=== PATIENT | male | born 1970 | race Hispanic/Latino ===

== ENCOUNTER 2024-06-05 05:26 | Emergency (ER) | payer OTHER ==
[~2024-06-05] VITALS: Ht 172.7 cm; Wt 108.4 kg
[2024-06-05 06:32] LABS: BASOPHILS # (AUTO) 0.05 K/uL (0.00-0.20); BASOPHILS % (AUTO) 0.8 % (0.0-5.0); EOSINOPHILS # (AUTO) 0.08 K/uL (0.00-0.70); EOSINOPHILS % (AUTO) 1.2 % (0.0-8.0); HEMATOCRIT 51.2 % (42-54); IMMATURE GRANULOCYTE ABSOLUTE 0.02 K/uL (0-1); LYMPHOCYTES # (AUTO) 1.6 K/uL (1.0-4.8); MEAN CORPUSCULAR HEMOGLOBIN 29.2 pg (27.0-33.0); MEAN CORPUSCULAR HGB CONC 33.6 g/dL (32.0-36.0); MEAN CORPUSCULAR VOLUME 86.8 fL (79-99); MONOCYTES # (AUTO) 0.6 K/uL (0.1-1.0); MONOCYTES % (AUTO) 8.6 % (3.0-13.0); NEUTROPHILS # (AUTO) 4.2 K/uL (1.8-7.7); NEUTROPHILS % (AUTO) 65.1 % (40.0-77.0); PLATELET COUNT (AUTO) 188 K/uL (130-400); RED CELL DISTRIBUTION WIDTH 13.1 % (11.0-15.5); WHITE BLOOD COUNT (AUTO) 6.5 K/uL (4.8-10.8)
--- NOTE | 2024-06-05 06:37 | ERN ---
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 And then while moving around and picking things up in the kitchen he started to feel more and more lightheaded. He comes to the ED for evaluation. He does not report any chest pain or mauro rtness of breath palpitations or any other symptoms. Just a little lightheadedness whenever he stands up. This is the 1st time he has experienced this. Of note his blood pressure is little high with a systolic of 170 in the diastolic of 111. The patient does take blood pressure medications and he states he has taken them today. Allergies: Coded Allergies: No Known Allergies (Unverified Allergy, Unknown, 06/05/24) Home Meds Active Scripts Meclizine HCl (Antivert) 25 Mg Tab.chew, 25 MG PO TID for dizziness, #20 TAB.CHEW Prov:NORMAN FLEMING Taylor DO 06/05/24 Past Medical History Past Medical History: Hypertension Past Surgical History: Appendectomy ROS Dictation Review of systems is otherwise negative no photophobia no change in mental status no neck pain no chest pain no shortness of breath no abdominal pain no back pain no leg pain moves all extremities normal bowel movements normal urin ation. Physical Exam General Appearance: (+) no apparent distress Orientation: (+) oriented x 3 Eye: bilateral eye normal inspection, bilateral eye PERRL, bilateral eye EOMI Ear, Nose, Throat: (+) hearing grossly normal, (+) normal ENT inspection, (+) moist mucous membraine Neck: (+) normal inspection, (+) supple, (+) full range of motion, (+) no JVD Respiratory: (+) chest non-tender, (+) lungs clear, (+) well ventilated Heart: (+) regular, (+) no gallop Vascular: (+) no edema, (+) normal peripheral pulse Gastrointestinal: (+) soft, (+) non-tender, (+) no organomegaly, (+) bowel sound present Results Laboratory and Microbiology Lab and Micro Result Laboratory Tests Test 06/05/24 06:30 White Blood Count 6.5 K/uL (4.8-10.8) Red Blood Count 5.90 MIL/uL (4.50-6.20) Hemoglobin 17.2 g/dL (14.0-18.0) Hematocrit 51.2 % (42-54) Mean Corpuscular Volume 86.8 fL (79-99) Mean Corpuscular Hemoglobin 29.2 pg (27.0-33.0) Mean Corpuscular Hemoglobin Concent 33.6 g/dL (32.0-36.0) Red Cell Distribution Width 13.1 % (11.0-15.5) Platelet Count 188 K/uL (130-400) Mean Platelet Volume 11.3 fL (7.5-10.5) H Immature Granulocyte % (Auto) 0.3 % (0-1) Neutrophils (%) (Auto) 65.1 % (40.0-77.0) Lymphocytes (%) (Auto) 24.0 % (21.0-51.0) Monocytes (%) (Auto) 8.6 % (3.0-13.0) Eosinophils (%) (Auto) 1.2 % (0.0-8.0) Basophils (%) (Auto) 0.8 % (0.0-5.0) Neutrophils # (Auto) 4.2 K/uL (1.8-7.7) Lymphocytes # (Auto) 1.6 K/uL (1.0-4.8) Monocytes # (Auto) 0.6 K/uL (0.1-1.0) Eosinophils # (Auto) 0.08 K/uL (0.00-0.70) Basophils # (Auto) 0.05 K/uL (0.00-0.20) Absolute Immature Granulocyte (auto 0.02 K/uL (0-1) Nucleated Red Blood Cells 0.0 % (0.0-0.19) Sodium Level 135 mmol/L (136-145) L Potassium Level 3.8 mmol/L (3.5-5.1) Chloride Level 102 mmol/L (101-111) Carbon Dioxide Level 25 mmol/L (21-32) Blood Urea Nitrogen 8 mg/dL (7-18) Creatinine 0.7 mg/dL (0.5-1.3) Glomerular Filtration Rate Calc 112 mL/min (>90) Random Glucose 153 mg/dL (70-105) H Total Calcium 8.6 mg/dL (8.5-10.1) Troponin I High Sensitivity 8 ng/L (4-75) MDM I will give the patient some IV fluids I will get a CBC CMP CT head and an EKG and bolused him a L of fluid. I will also give him a little hydralazine to lower his blood pressure. Vitals stable re-evaluation Symptoms have improved Musculoskeletal or dizziness/vertigo benign in nature We will DC ED Course Orders Procedure Category Date Status Time 12 Lead Ekg Tracing- EKG 06/05/24 Complete Technical 05:36 Cbc With Differential LAB 06/05/24 Complete 05:59 Basic Metabolic Panel LAB 06/05/24 Complete 05:59 Troponin I High LAB 06/05/24 Complete Sensitivity 05:59 Ct Head/Brain W/O CT 06/05/24 Resulted Contrast 06:37 0.9%Nacl 1000ml (Ns PHA 06/05/24 Complete 1000ml) 07:00 Hydralazine 20mg Inj PHA 06/05/24 Complete (Apresoline 20mg In 07:00 Current Medications Medications (Trade) Dose Ordered Sig/Chyna Route PRN Reason Start Time Stop Time Status Last Admin Dose Admin Hydralazine HCl (APRESOLine 20MG INJ) 20 mg ONCE ONCE IM 06/05/24 07:00 06/05/24 07:01 DC 06/05/24 07:03 Sodium Chloride 1,000 ml @ 0 mls/hr ONCE ONCE IV 06/05/24 07:00 06/05/24 07:01 DC 06/05/24 07:03 Vital Signs Date Time Temp Pulse Resp B/P (MAP) Pulse Ox O2 Delivery O2 Flow Rate FiO2 06/05/24 08:54 97.5 72 18 165/84 98 Room Air* 0 21 06/05/24 06:22 98.4 70 18 161/93 96 Room Air* 0 21 06/05/24 05:28 97.3 73 20 184/112 96 Room Air DX & DISP Disposition: Discharge Departure Impression: Primary Impression: Vertigo Condition: Stable Scripts Meclizine HCl (Antivert) 25 Mg Tab.chew 25 MG PO TID for dizziness, #20 TAB.CHEW Prov: NORMAN FLEMING DO 06/05/24 Additional Instructions: Your symptoms are most consistent with vertigo. This is generally a benign inner ear problem that causes dizziness and unbalanced. Your EKG is stable. The CT scan of your brain is normal. Your blood work (CBC, BMP, troponin) is normal. I have prescribed Antivert. It this is a medication that you can use for dizzy spells. As we discussed, if you feel further episodes, follow up with your primary doctor for further treatment and evaluation. Please return to the emergency department as needed. Referrals: ELIS DYER MD (PCP) ABHI RICHARDSON MD Jun 05, 2024 06:37 NORMAN FLEMING DO Jun 05, 2024 08:28
[2024-06-05 06:46] LABS: CREATININE 0.7 mg/dL (0.5-1.3); POTASSIUM 3.8 mmol/L (3.5-5.1)
[2024-06-05] MEDS: hydrALAZine 20MG/ML VIAL IM ONE (07:03)
[2024-06-05] MEDS: 0.9%NACL 1000ML 1,000 ML IV ONE (07:03)
--- NOTE | 2024-06-05 08:10 | EKG ---
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
[2024-06-05] MEDS ORDERED: MECL-262 PO (08:28)
--- NOTE | 2024-06-05 08:31 | HMCIMG ---
CT HEAD/BRAIN W/O CONTRAST HISTORY: Lightheadedness COMPARISON: None TECHNIQUE: Multiple sequential axial images of the head were obtained from the base of the skull through vertex. Patient was not given contrast through intravenous route. FINDINGS: The ventricles and extraventricular CSF spaces are dilated consistent with cerebral atrophy. Nonspecific white matter changes seen. There is no midline shift, mass effect or herniation. No acute intracranial bleed is seen. There is mild right maxillary sinusitis with mucoperiosteal thickening. IMPRESSION: 1. No acute intracranial bleed is seen. 2. Atrophy with white matter changes. CT was performed with one or more following dose reduction techniques: automated exposure control, adjustment of the mA and kv according to patient's size, or use of a iterative reconstruction technique.
[2024-06-05 08:54] VITALS: BP 165/84; PULSE 72; RESP 18; TEMP 97.6; O2SAT 98
== END 2024-06-05 09:04 | disposition home or self-care (01) ==
LOC: EDH 05:26
DX: R42 Dizziness and giddiness (principal); I10 Essential (primary) hypertension; Z90.49 Acquired absence of other specified parts of digestive tract
CPT/HCPCS: 99285; 96360; 70450; 96361; 84484; 80048; 85025; 36415; 93005; 96372; J7030; J0360